=== PATIENT | female | born 1995 | race Caucasian/White ===

== ENCOUNTER 2017-09-23 16:26 | Emergency (ER) | payer OTHER, BC ==
[~2017-09-23] VITALS: Ht 157.5 cm; Wt 63.5 kg
[~2017-09-23 16:26] MED LIST: CIPR-344 PO; LOR5/325 PO
[2017-09-23] MEDS ORDERED: fentaNYL CITR 100 MCG/2 ML AMP IVP ONE (16:45)
[2017-09-23] MEDS ORDERED: KETAMINE HCL 200 MG/20 ML MDV IVP ONE (17:00)
[2017-09-23] MEDS ORDERED: ONDANSETRON 4 MG/2 ML VIAL IVP ONE (17:00)
[2017-09-23] MEDS ORDERED: KETAMINE HCL 500 MG/5 ML VIAL IVP ONE (17:05)
--- NOTE | 2017-09-23 17:19 | RADIOLOGY IMAGING REPORT ---
FACILITY: [facility] PATIENT NAME: Valeria Piña : 1995 MR: [id number] V: [id number] EXAM DATE: ORDERING PHYSICIAN: DODIE MORALES TECHNOLOGIST: [place] [facility] [place]: Valeria Piña : 1995 Visit/Account:[id number] Date of Sevice: 09/23/2017 FOOT 2 VIEW LEFT Indication: Trauma. Nail in foot.. Comparison: None Available Findings: 3 views of the left foot were obtained. Overlapping tissue material which limits evaluation of underlying fine detail. There is a foreign bod y nail which enters through the dorsum of the foot at the level of the metatarsal heads, extending be tween the first and second metatarsal heads and terminating within the soft tissues deep to the proxi mal second metatarsal base. No visualized osseous associations/fracture. No gross fractures. IMPRESSION: Foreign body nail, as above, without definitive fracture. Report Dictated By: Cruzito Monroe MD at 09/23/2017 5:10 PM Report E-Signed By: Cruzito Monroe MD at 09/23/2017 5:15 PM WSN:[id number]
--- NOTE | 2017-09-23 17:40 | ER Report ---
History and Physical Time Seen By MD: 16:30 Hx. of Stated Complaint: PT PRESENTS WITH NAIL THRU HER BOOT INTO FOOT WITH A NAIL GUN 20 MIN AGO HPI/ROS CHIEF COMPLAINT: Left foot injury HISTORY OF PRESENT ILLNESS: Patient is a 22-year-old female who presents the ED with complaint of left foot injury. She states that she was nailing and shot a nail into her left foot of her boot. She states that the nail is about 8 inch diameter in 3 inches long. She states that she is having some pain but did walk in here today. 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 Patient states that she is able to wiggle her toes. She has not noted any bleeding. She states that she is up-to-date with her tetanus vaccination. REVIEW OF SYSTEMS: Constitutional: No fever, no chills. Cardiovascular: No chest pain, no palpitations. Respiratory: No cough, no shortness of breath. Musculoskeletal: See history of present illness. Skin: No rashes. Neurological: No headache. Allergies: Coded Allergies: Penicillins (Verified Allergy, Intermediate, RASH, 09/23/17) Home Meds Discontinued Scripts Hydrocodone Bit/Acetaminophen (HYDROCODON-ACETAMINOPHEN 5-325) 1 Each Tablet, 1 EACH PO Q4-6H Y for PAIN, #20 TAB 0 Refills TAKE ONE TABLET BY MOUTH EVERY 4-6 HOURS NEEDED FOR PAIN Prov:SALLIE CONTRERAS MD 08/13/15 Ciprofloxacin Hcl (CIPRO) 500 Mg Tablet, 500 MG PO BID, #20 TAB 0 Refills Prov:SALLIE CONTRERAS MD 08/13/15 Reviewed Nurses Notes: Yes Old Medical Records Reviewed: Yes Hx Smoking: Yes Smoking Status: Current: Every Day Smoker Hx Substance Use Disorder: Yes (POT) Hx Alcohol Use: Yes (OCC) Constitutional Vital Sign - Last 24 Hours 09/23/17 09/23/17 09/23/17 09/23/17 16:30 16:30 16:31 16:36 Temp 98.5 Pulse 84 ??? 91 Resp 20 B/P (MAP) 140/64 140/64 (89) Pulse Ox 100 100 O2 Delivery Room Air 09/23/17 09/23/17 09/23/17 09/23/17 16:41 16:46 16:51 16:56 Pulse 102 87 78 63 Pulse Ox 100 100 100 100 09/23/17 09/23/17 09/23/17 09/23/17 16:59 17:01 17:06 17:10 Pulse 67 65 Resp 12 9 B/P (MAP) 141/87 (105) 138/115 (123) Pulse Ox 100 100 09/23/17 09/23/17 09/23/17 09/23/17 17:11 17:15 17:16 17:20 Pulse 59 Resp 11 40 B/P (MAP) 152/132 (139) 133/81 (98) Pulse Ox 100 78 09/23/17 09/23/17 09/23/17 17:21 17:25 17:26 Pulse 83 92 Resp 10 8 B/P (MAP) 129/75 (93) Physical Exam General Appearance: The patient is alert, has no immediate need for airway protection and no current signs of toxicity. Patient appears to be no acute distress. Respiratory: Chest is non tender, lungs are clear to auscultation. Cardiac: regular rate and rhythm Musculoskeletal: Neck: Neck is supple and non tender. There is the head of the nail noted in her left boot. Unable to remove the boot due to the nail. She states that she can feel the nail did go through her entire foot but do not see an exit of the nail through the boot. PT pulses 2+. Medical Decision Making EKG/Imaging Imaging Left Foot Xrays: IMPRESSION: Foreign body nail, as above, without definitive fracture. Report Dictated By: Cruzito Monroe MD at 09/23/2017 5:10 PM Report E-Signed By: Cruzito Monroe MD at 09/23/2017 5:15 PM Left Foot Xrays Post procedure: IMPRESSION: 1. Successful removal of the foreign body. 2. Cortical irregularity along the medial aspect of the first metatarsal head consistent with osseous injury from the foreign body. Report Dictated By: Mahesh Bae DO at 09/23/2017 5:44 PM Report E-Signed By: Mahesh Bae DO at 09/23/2017 5:48 PM ED Course/Re-evaluation ED Course Discussed patient with Dr. Sims, ED did come and evaluate the patient as well. Commended the patient to have the nail removed through the patient after some sedation. Patient was given 50 g of fentanyl IV pain relief. Procedure: Procedural sedation. A pre-sedation evaluation was completed on the patient at 1710. Patient is an appropriate candidate for procedural sedation and removal foreign body of left foot. The risks of the sedation were discussed with the patient. A time out was completed. The patient was sedated with ketamine 100 mg IV and 100 mg propofol IV as well as 4 mg IV Zofran. The patient was monitored with continuous pulse oximetry and felt cutter. There were no complications and no significant hypoxemia. I remained at the bedside for the sedation. The total time I spent in the procedural sedation was [address] Franklin, ED removed the nail with pliers. Postprocedure exam of the left foot reveals a puncture wound of the left medial dorsal aspect and there is another puncture wound on the plantar aspect of the midfoot. No sick and swelling or ecchymosis appreciated. Initial x-rays revealed no fracture. Will obtain a post procedure film. 09/23/2017 6:01:09 pm - reviewed postprocedure x-ray results with patient. Does appear that she may have some slight bony damage to the 1st metatarsal head from the foreign body. Will place her on some antibiotics and pain medication. Patient will be given just 2 years. Will have her follow-up with orthopedics. Will place her on Keflex and Cipro to cover for pseudomonas and strep. Decision to Disposition Date: Sep 23, 2017 Decision to Disposition Time: 18:02 Depart Departure Latest Vital Signs Vital Signs Date Time Temp Pulse Resp B/P (MAP) Pulse Ox O2 Delivery O2 Flow Rate FiO2 09/23/17 17:26 92 8 09/23/17 17:25 129/75 (93) 09/23/17 17:16 78 09/23/17 16:30 98.5 Room Air Impression: Primary Impression: Foreign body in left foot Condition: Improved Disposition: HOME OR SELF-CARE Referrals: [facility] New Scripts Cephalexin 500 Mg Tab (KEFLEX 500 MG TAB) 500 Mg Tablet 500 MG PO Q6H, #28 TAB Prov: NICKI SCHAEFFER PA-C 09/23/17 Ciprofloxacin Hcl (CIPROFLOXACIN HCL) 500 Mg Tablet 500 MG PO Q12H, #14 TAB Prov: NICKI SCHAEFFER PA-C 09/23/17 Hydrocodone Bit/Acetaminophen (NORCO 5-325 TABLET) 1 Each Tablet 1 EACH PO Q4-6H Y for PAIN, #8 TAB Prov: NICKI SCHAEFFER PA-C 09/23/17 Patient Instructions: Puncture Wound (ED), Soft Tissue Foreign Body (ED) Additional Instructions: Rest, ice, elevate. Monitor for signs and symptoms of infection including redness, swelling, discharge, fever. Follow-up with primary care provider in orthopedics in 2-3 days. Use crutches as needed. If having any worsening or concerning symptoms may return to the emergency room. Problem Qualifiers Primary Impression: Foreign body in left foot Encounter type: initial encounter Qualified Codes: S90.852A - Superficial foreign body, left foot, initial encounter NICKI SCHAEFFER PA-C Sep 23, 2017 17:40
--- NOTE | 2017-09-23 17:52 | RADIOLOGY IMAGING REPORT ---
FACILITY: [facility] PATIENT NAME: Valeria Piña : 1995 MR: [id number] V: [id number] EXAM DATE: ORDERING PHYSICIAN: NICKI SCHAEFFER TECHNOLOGIST: Location: [facility] Patient: Valeria Piña : 1995 Visit/Account:[id number] Date of Sevice: 09/23/2017 ADDENDUM #1 Please note the findings and impression should read cortical irregularity along the LATERAL aspect of the first metatarsal head Report Dictated By: Mahesh Bae DO at 09/24/2017 8:03 AM Report E-Signed By: Mahesh Bae DO at 09/24/2017 8:04 AM ORIGINAL REPORT Technique: FOOT 3 VIEW LEFT HISTORY: Foreign body removal Comparison studies: Left foot radiographs 09/23/2017 FINDINGS: The patient is status post removal of a nail projecting over the forefoot. No retained meta llic fragments are identified. There is cortical irregularity along the medial aspect of the left fir st metatarsal head. Soft tissue swelling surrounds the forefoot. IMPRESSION: 1. Successful removal of the foreign body. 2. Cortical irregularity along the medial aspect of the first metatarsal head consistent with osseous injury from the foreign body. Report Dictated By: Mahesh Bae DO at 09/23/2017 5:44 PM Report E-Signed By: Mahesh Bae DO at 09/23/2017 5:48 PM [id number]
[2017-09-23] MEDS ORDERED: CEPH500T7 PO (18:05)
[2017-09-23] MEDS ORDERED: HYDR-4309 PO (18:05)
[2017-09-23] MEDS ORDERED: CIPR-214 PO (18:05)
[2017-09-23 18:27] VITALS: BP 118/63
[2017-09-23] MEDS ORDERED: PROPOFOL EMUL 10MG/ML 20 ML VL IVP ONE (18:30)
[2017-09-23] MEDS ORDERED: NS(*) 0.9% 1000 ML BAG 1,000 ML IV ONE (18:50)
== END 2017-09-23 18:25 | disposition home or self-care (01) ==
LOC: ER 16:37
DX: S90.852A Superficial foreign body, left foot, initial encounter (principal)
CPT/HCPCS: 73620; 73630; 96361; 96374; 96375; 99151; 99285; J2405; J2704; J3010; J7030

== ENCOUNTER → 2018-01-14 | Outpatient (CLI) | payer OTHER, BC ==
[~2018-01-14] MED LIST changes: +CEPH500T7 PO; +CIPR-214 PO; +HYDR-4309 PO
[2018-01-14 16:13] LABS: PLATELET COUNT, AUTOMATED 188 K/uL (150-450)
--- NOTE | 2018-01-14 16:18 | RADIOLOGY IMAGING REPORT ---
FACILITY: [facility] PATIENT NAME: Valeria Piña : 1995 MR: [id number] V: [id number] EXAM DATE: ORDERING PHYSICIAN: LOYDA VIZCARRA TECHNOLOGIST: Location: [facility] Patient: Valeria Piña : 1995 Visit/Account:[id number] Date of Sevice: 01/14/2018 Abdominal ultrasound Indication: Abdominal pain Comparison: None Technique: Multiple grayscale, color and Doppler sonographic images were obtained for a complete ultr asound of the abdomen. Findings: Liver is normal in size, contour, and echotexture and measures 15.6 cm in length. There is normal hep atopedal portal venous flow. The spleen is normal in size, contour, and echotexture and measures 11.9 cm in length. Gallbladder wall thickness is 2 mm with no evidence of shadowing stone or sludge within the gallbladd er lumen. Negative sonographic Prather's sign reported by the technologist. Common duct measures 3 mm in maximum diameter with no evidence of shadowing stone. The head and proximal body of the pancreas is unremarkable. The distal body and tail is obscured by o verlying bowel gas. Abdominal aorta and IVC are patent and unremarkable. The kidneys are normal in size, contour, and echotexture with the right kidney measuring 10.7 cm x 3 .3 cm x 4.2 cm and the left kidney measuring 11.1 cm x 3.3 cm x 3.8 cm. IMPRESSION: 1. Normal abdominal ultrasound. Report Dictated By: Mahesh Bae DO at 01/14/2018 4:12 PM Report E-Signed By: Mahesh Bae DO at 01/14/2018 4:15 PM WSN:[id number]
== END ==
LOC: US 00:40
PROVIDERS: ATTEND Nurse Practitioner Family
DX: R10.9 Unspecified abdominal pain (principal); N39.0 Urinary tract infection, site not specified
CPT/HCPCS: 36415; 76700; 82040; 82247; 82310; 82374; 82435; 82565; 82947; 84075; 84132; 84155; 84295; 84450; 84460; 84520; 85025